=== PATIENT | male | born 1945 ===

== ENCOUNTER 2017-01-25 22:34 | Observation (INO) ==
[2017-01-26 01:25] LABS: Basophils % 0.3 % (0.0-0.8); Eosinophils # 0.1 10*3/uL (0.0-0.87); Eosinophils % 1.8 % (0.00-10.9); Hematocrit 37.6 VOL% (42.0-52.0); Hemoglobin 11.9 GM/DL (14.0-18.0); Immature Granulocytes % 0.3 %; Immature Granulocytes Absolute 0.02 #; Lymphocytes # 2.7 10*3/uL (1.4-4.0); Lymphocytes % 35.9 % (21.2-54.2); Mean Corpuscular HGB Conc 31.6 GM/DL (32-36); Mean Corpuscular Hemoglobin 31 PG (27-34); Mean Corpuscular Volume 98.9 FL (87-102); Mean Platelet Volume 9.7 FL (9.6-12.0); Monocytes # 0.8 10*3/uL (0.11-0.8); Monocytes % 10.4 % (1.7-12.7); Neutrophils # 3.9 10*3/uL (1.4-7.4); Neutrophils % 51.3 % (38.7-73.9); Platelet Count 228 T/CUMM (130-400); Red Cell Distribution Width 16.5 % (9.3-17.3); White Blood Count 7.6 T/CUMM (4-12)
[2017-01-26 01:46] LABS: Bilirubin,Total 0.4 MG/DL (0.2-1.0); Calcium 10.1 MG/DL (8.5-10.1); Osmolality,Calculated 291.4 MOS/KG (273-304); Potassium 3.8 MMOL/L (3.5-5.1); Total Protein 7.8 G/DL (6.4-8.3)
[2017-01-26] MEDS ORDERED: DEXTROSE 50% 25 GM/50 ML VIAL IV STA (01:52)
[2017-01-26] MEDS ORDERED: DEXTROSE 50% 25 GM/50 ML VIAL IV ONE (01:57)
--- NOTE | 2017-01-26 02:04 | Emergency Department Note ---
I, Bri Huff, am scribing for, and in the presence of, Travis Suh M.D. 00:28. IVikash Howard T, M.D., personally performed the services described in this documentation, ascribed by Bri Huff in my presence, and it is both accurate and complete . Arrival - Arrival Chief Complaint: Weakness Stated Complaint: weak light headed ED Nursing Triage Note: Pt to triage with c/o weakness that started this morning. Pt states his ears keeps "opening and closing up". Pt also states he's being having some eye drainage. Mode of Arrival: Wheelchair Limitations: No Limitations Source: Patient, Family Time Seen by Provider: 01/25/17 23:51 - History of Present Illness HPI Narrative: Pt is a 71 y/o black male arriving to ED via wheelchair with c/o generalized weakness that onset yesterday. Pt states that he has not been able to get up out of the bed without help. He states that this happened once before but he is not sure what his diagnosis was because it has been a while. Pt denies N/V/D but confirms chronic blurred vision. Family reports that pt has been losing weight although he has kept his same diet. No other complaints were reported to ED. Onset (ago): hour(s) Consistency: constant Severity: mild Allergies/Adverse Reactions: Allergies Allergy/AdvReac Type Severity Reaction Status Date / Time No Known Allergies Allergy Unverified 01/25/17 22:42 Home Medications: Home Medications Medication Instructions Recorded Confirmed Type Donepezil [Aricept] 5 mg PO DAILY 01/25/17 01/25/17 History Escitalopram Oxalate 10 mg PO 01/25/17 History Furosemide 20 mg PO 01/25/17 History Methocarbamol 750 mg PO TID 01/25/17 01/25/17 History OLANZapine [Olanzapine Odt] 5 mg PO 01/25/17 History OLANZapine [Olanzapine] 10 mg PO 01/25/17 History amLODIPine [Norvasc] 5 mg PO DAILY 01/25/17 01/25/17 History glipiZIDE [Glipizide] 10 mg PO 01/25/17 History metFORMIN [Glucophage] 1,000 mg PO BID W/MEALS 01/25/17 01/25/17 History Review of System - Review of System Constitutional: Present: weakness. Absent: chills, diaphoresis, fever Eyes: Present: other (chronic blurred vision) Gastrointestinal: Absent: abdominal pain, nausea, vomiting, diarrhea Genitourinary male: Absent: urgency, dysuria Musculoskeletal: Absent: arm pain, back pain, leg pain, neck pain Medical,Surgical,& Family Hx - Medical History Cardio: History of: Hypertension Endocrine: History of: Diabetes Mellitus (NIDDM) - Social History Smoking Status: Unknown if ever smoked Frequency of Alcohol Use: None Type of Drug Use: None Exam Vital Signs: Vital Signs Temperature 98.6 F 01/25/17 22:39 Pulse Rate 74 01/25/17 23:50 Respiratory Rate 16 01/25/17 23:50 Blood Pressure 154/76 01/25/17 23:50 O2 Sat by Pulse Oximetry 99 01/25/17 22:39 - General General appearance: alert, in no apparent distress - Head Head exam: Present: atraumatic, normocephalic, normal inspection - Eye Eye exam: Present: normal appearance, PERRL, EOMI - ENT ENT exam: Present: normal exam, normal oropharynx, mucous membranes moist, TM's normal bilaterally, normal external ear exam - Neck Neck exam: Present: normal inspection, full ROM, trachea midline. Absent: tenderness - Chest Chest inspection: Present: normal inspection, symmetric chest wall rise. Absent : tenderness - Respiratory Respiratory exam: Present: normal lung sounds bilaterally - Cardiovascular Cardiovascular exam: Present: regular rate, normal rhythm, normal heart sounds - Abdominal Exam Abdominal exam: Present: soft. Absent: distention, tenderness, guarding, rebound - Extremities Exam Extremities exam: Present: normal inspection, full ROM, normal capillary refill. Absent: tenderness, pedal edema - Back Exam Back exam: Present: normal inspection, full ROM. Absent: tenderness - Neurological Exam Neurological exam: Present: alert, oriented X3, CN II-XII intact, normal gait, reflexes normal - Psychiatric Psychiatric exam: Present: normal affect, normal mood - Skin Skin exam: Present: warm, dry, intact, normal color Course Course Narrative: Medical decision making: Hypoglycemia noted despite no insulin. Perhaps this is because of weakness, his evaluation is ongoing and hospitalist Dr. Driver will evaluate him once labs are back for admission and continued treatment. Results - Labs CBC & BMP: 01/26/17 00:36 01/26/17 00:36 - Diagnostic Findings Procedure: CT: report reviewed by me (Head: No acute intracranial pathology. ) Disposition Clinical Impression: Hypoglycemia, Weakness Case discussed with: patient Disposition: Still a Patient Condition: Stable Time of Disposition: 02:03
--- NOTE | 2017-01-26 03:55 | Hospitalist History & Physical ---
Assessment and Plan (1) Diabetes Status: Acute Current Visit: Yes (2) Hypernatremia Status: Acute Current Visit: Yes (3) Mild dehydration Status: Acute Current Visit: Yes (4) Hypoglycemia Status: Acute Current Visit: Yes (5) Weakness Status: Acute Assessment and plan: We will admit him to our service. Will consult diabetic education. We will provide him with half-normal saline and recheck labs in the morning. Get physical therapy to evaluate his strength. Reevaluate patient in the morning and adjust plans appropriate. Current Visit: Yes History of Present Illness Chief complaint: Generalized weakness History of present illness: Mr. Torres is a 71 year old male with past medical history significant for rheumatoid arthritis, diabetes and hypertension who reports generalized weakness. Patient says is been going off and on for a while. He notes some blurry vision and some discharge out of his eyes. Patient does not check his sugar routinely. Said his daughter checked in approximately a week ago. Patient gets to our ER patient was found to have a glucose of 37.Patient received an Amp of D50 for this. I was consulted to admit the patient. Home Medications Medication Instructions Recorded Confirmed Type Donepezil [Aricept] 5 mg PO DAILY 01/25/17 01/25/17 History Escitalopram Oxalate 10 mg PO 01/25/17 History Furosemide 20 mg PO 01/25/17 History Methocarbamol 750 mg PO TID 01/25/17 01/25/17 History OLANZapine [Olanzapine Odt] 5 mg PO 01/25/17 History OLANZapine [Olanzapine] 10 mg PO 01/25/17 History amLODIPine [Norvasc] 5 mg PO DAILY 01/25/17 01/25/17 History glipiZIDE [Glipizide] 10 mg PO 01/25/17 History metFORMIN [Glucophage] 1,000 mg PO BID W/MEALS 01/25/17 01/25/17 History Allergies Allergy/AdvReac Type Severity Reaction Status Date / Time No Known Allergies Allergy Unverified 01/25/17 22:42 Medical,Surgical,& Family Hx - Medical History Cardio: History of: Hypertension Endocrine: History of: Diabetes Mellitus (NIDDM) - Surgical History Orthopedic Surgeries: Surgical HX of;: Orthopedic Surgery - Family History Family History: Reports;: Family Hypertension - Social History Smoking Status: Unknown if ever smoked Frequency of Alcohol Use: None Type of Drug Use: None 12 point system: reviewed and no additional remarkable complaints except as stated Exam - Constitutional Vitals: Period Temp Pulse Resp BP Sys/Rivas Pulse Ox Last 24 Hr 98.6 F 74-84 16-16 120-154/65-76 99 - General General appearance: alert, in no apparent distress - Head Head exam: Present: atraumatic, normocephalic, normal inspection - Eye Eye exam: Present: normal appearance, PERRL, EOMI - ENT ENT exam: Present: normal exam, normal oropharynx, mucous membranes moist - Neck Neck exam: Present: normal inspection, full ROM, trachea midline. - Chest Chest inspection: Present: normal inspection, symmetric chest wall rise. - Respiratory Respiratory exam: Present: normal lung sounds bilaterally - Cardiovascular Cardiovascular exam: Present: regular rate, normal rhythm, normal heart sounds - Abdominal Exam Abdominal exam: Present: soft. Absent: distention, tenderness, guarding, rebound - Extremities Exam Extremities exam: Present: Patient has changes in his hand consistent with his rheumatoid arthritis - Back Exam Back exam: Present: normal inspection, full ROM. Absent: tenderness - Neurological Exam Neurological exam: Present: alert, oriented X3, CN II-XII intact, normal gait, reflexes normal - Psychiatric Psychiatric exam: Present: normal affect, normal mood - Skin Skin exam: Present: warm, dry, intact, normal color Results - Labs CBC & BMP: 01/26/17 00:36 01/26/17 00:36
[2017-01-26] MEDS ORDERED: ONDANSETRON 4 MG/2 ML VIAL IV PRN (03:58)
[2017-01-26] MEDS ORDERED: GLUCAGON 1 MG VIAL IM PRN (03:58)
[2017-01-26] MEDS ORDERED: DEXTROSE 50% 25 GM/50 ML VIAL IV PRN (03:58)
[2017-01-26] MEDS ORDERED: ACETAMINOPHEN 325 MG TABLET PO PRN (03:58)
[2017-01-26] MEDS: SODIUM CHLORIDE 0.45% 1,000 ML IV SCH ×2 (04:47→16:02)
[2017-01-26 05:32] LABS: Apearance,Urine CLEAR (Clear); Bilirubin,Urine Negative (Negative); Blood, Urine Negative (Negative); Glucose,Urine (UA) 150 mg/dL (Negative); Hyaline Casts,Urine 2 /LPF (0-3); Ketones,Urine 5 mg/dL (Negative); Mucus,Urine Few /LPF (Occasional); Nitrite,Urine Negative (Negative); Protein,Urine Negative; RBC,Urine 2 /HPF (0-4); Squamous Epithelial Cell,Urine Occasional /HPF (0-10); Urine Color Yellow (Yellow); WBC,Urine 1 /HPF (0-6)
--- NOTE | 2017-01-26 07:59 | CT Report ---
Referring physician: Travis Suh Exam: CT brain without contrast Date: 01/26/2017 Comparison: None Reason: Weakness, alteration of consciousness Technique: Axial images of the head were obtained without the use of contrast. Total DLP was 1088.90 mGy*cm. This exam was initially interpreted by [facility]. Findings: No hydrocephalus or midline shift is present. Cavum septum pellucidum and vergae. Diffuse atrophy and cerebral hypodensities. There is no evidence of an acute infarction, recent intracranial hemorrhage or abnormal mass effect. The osseous structures appear intact. Scalp calcifications are noted. The mastoid air cells and visualized paranasal sinuses are clear. Impression: No acute intracranial abnormality is identified. Minimal atrophy and microvascular disease. The CT exam was performed using one or more of the following dose reduction techniques: Automated exposure control and adjustment of the mA and/or kV according to patient size. PROCEDURE INTERPRETED AT [facility] DEPARTMENT OF RADIOLOGY Final Report Signed by: Dr. Sherry Ventura
[2017-01-26] MEDS: INSULIN REGULAR 100 UNIT/ML SUBCUT SCH ×4 (08:33→20:32)
[2017-01-26 08:35] LABS: Calcium 8.9 MG/DL (8.5-10.1); Magnesium 2.3 MG/DL (1.8-2.4); Osmolality,Calculated 289.7 MOS/KG (273-304)
[2017-01-26] MEDS: DONEPEZIL 5 MG TABLET PO SCH (09:33)
[2017-01-26] MEDS: METHOCARBAMOL 750 MG TABLET PO SCH ×3 (09:33→20:32)
[2017-01-26] MEDS: PANTOPRAZOLE 40 MG TABLET PO SCH (09:33)
[2017-01-26] MEDS: amLODIPine 5 MG TABLET PO SCH (09:33)
[2017-01-26] MEDS: ENOXAPARIN 40 MG/0.4 ML SYRINGE SUBCUT SCH (09:34)
--- NOTE | 2017-01-26 09:43 | Hospitalist Progress Note ---
Assessment and Plan (1) Hypoglycemia Status: Acute Assessment and plan: Impression: 1. Hypoglycemia 2. Type II DM 3. Schizophrenia 4. Hypertension Plan: Follow glucoses. Hold sulfonylurea. Hope to discharge in the morning. Will need to give him time to metabolize the sulfonylurea. This note was completed using [employer] voice recognition software. There may be sidewalk repairer errors as a result. Current Visit: Yes Hospitalist: Subjective Interval history: The patient presented for evaluation of weakness. He reports that he was recently found to be diabetic when he was hospitalized over in [place]. At that time, he was also apparently diagnosed as being schizophrenic. He reports no prior history of hospitalization for mental issues. He does not do any checking of his blood sugar. He says that his daughter lives with him, but she works 2 jobs. He apparently has access to food. He reports that his weight is "up and down." Exam - Constitutional Vitals: Period Temp Pulse Resp BP Sys/Rivas Pulse Ox Last 24 Hr 97.3 F-98.6 F 67-84 16-20 120-154/65-76 99-100 Vital signs are noted above. Heart is regular with a soft systolic murmur. Lungs are clear with no rales or wheezes. Abdomen is soft with no mass. He is awake and conversant. Results - Labs CBC & BMP: 01/26/17 00:36 01/26/17 07:57 Lab Results: I have reviewed the past 24 hour labs Quality Measures - Stroke Symptom Onset Unknown: No
[2017-01-26] MEDS: OLANZapine 5 MG TABLET PO SCH (20:32)
[2017-01-27] MEDS: SODIUM CHLORIDE 0.45% 1,000 ML IV SCH ×3 (00:30→20:24)
[2017-01-27] MEDS: INSULIN REGULAR 100 UNIT/ML SUBCUT SCH ×4 (09:49→20:23)
[2017-01-27] MEDS: ENOXAPARIN 40 MG/0.4 ML SYRINGE SUBCUT SCH (10:00)
[2017-01-27] MEDS: METHOCARBAMOL 750 MG TABLET PO SCH ×3 (10:01→20:24)
[2017-01-27] MEDS: PANTOPRAZOLE 40 MG TABLET PO SCH (10:01)
[2017-01-27] MEDS: DONEPEZIL 5 MG TABLET PO SCH (10:01)
[2017-01-27] MEDS: amLODIPine 5 MG TABLET PO SCH (10:01)
--- NOTE | 2017-01-27 18:39 | Hospitalist Progress Note ---
Assessment and Plan (1) Hypoglycemia Status: Acute Assessment and plan: This has resolved. Patient is not requiring any anti-diabetes medications at this time Current Visit: Yes (2) Diabetes Status: Acute Assessment and plan: This is well controlled on just sliding scale insulin and he is not requiring much insulin at all. Current Visit: Yes Qualifiers: Diabetes mellitus type: type 2 Diabetes mellitus complication status: without complication Diabetes mellitus long-term insulin use: without long-term use Qualified Code(s): E11.9 - Type 2 diabetes mellitus without complications (3) Schizophrenia Status: Chronic Current Visit: Yes Qualifiers: Schizophrenia type: unspecified Qualified Code(s): F20.9 - Schizophrenia, unspecified (4) Dementia Status: Chronic Current Visit: Yes Qualifiers: Dementia type: Alzheimer's disease Dementia behavioral disturbance: without behavioral disturbance Hospitalist: Subjective Interval history: 71 yo M with history of hypertension diabetes and rheumatoid arthritis was admitted for evaluation of weakness & hypoglycemia. He reports that he was recently found to be diabetic when he was hospitalized over in [place]. At that time, he was also apparently diagnosed as being schizophrenic. He reports no prior history of hospitalization for mental issues. He does not do any checking of his blood sugar. He says that his daughter lives with him, but she works 2 jobs. Exam - Constitutional Vitals: Period Temp Pulse Resp BP Sys/Rivas Pulse Ox Last 24 Hr 96.7 F-97.3 F 57-69 12-20 104-140/61-74 96-100 General appearance: no acute distress - Head Head exam: Present: normal inspection, normocephalic, atraumatic - Eye Eye exam: Present: EOMI Pupils: Present: KARI - ENT ENT exam: Present: normal exam - Neck Neck exam: Present: normal inspection - Respiratory Respiratory exam: Present: clear to auscultation bilaterally - Cardiovascular Cardiovascular exam: Present: regular rate and rhythm - GI/Abdominal GI/Abdominal exam: Present: normal bowel sounds - Extremities Exam Extremities exam: Present: normal inspection, normal capillary refill - Neurological Exam Neurological exam: Present: alert - Psychiatric Psychiatric exam: Present: normal affect, normal mood - Skin Skin exam: Present: normal color, warm, dry Results - Labs CBC & BMP: 01/26/17 00:36 01/26/17 07:57 Quality Measures - Stroke Symptom Onset Unknown: No
[2017-01-27] MEDS: OLANZapine 5 MG TABLET PO SCH (20:24)
[2017-01-28] MEDS: SODIUM CHLORIDE 0.45% 1,000 ML IV SCH ×2 (06:08→15:59)
[2017-01-28] MEDS: INSULIN REGULAR 100 UNIT/ML SUBCUT SCH ×4 (08:00→21:58)
[2017-01-28] MEDS: METHOCARBAMOL 750 MG TABLET PO SCH ×3 (08:54→20:29)
[2017-01-28] MEDS: DONEPEZIL 5 MG TABLET PO SCH (08:54)
[2017-01-28] MEDS: ENOXAPARIN 40 MG/0.4 ML SYRINGE SUBCUT SCH (08:55)
[2017-01-28] MEDS: PANTOPRAZOLE 40 MG TABLET PO SCH (08:55)
[2017-01-28] MEDS: amLODIPine 5 MG TABLET PO SCH (08:55)
--- NOTE | 2017-01-28 19:13 | Hospitalist Progress Note ---
Assessment and Plan (1) Hypoglycemia Status: Acute Assessment and plan: This has resolved. Patient is not requiring any anti-diabetes medications at this time Current Visit: Yes (2) Diabetes Status: Acute Assessment and plan: This is well controlled on just sliding scale insulin and he is not requiring much insulin at all. Current Visit: Yes Qualifiers: Diabetes mellitus type: type 2 Diabetes mellitus complication status: without complication Diabetes mellitus care home insulin use: without care home use Qualified Code(s): E11.9 - Type 2 diabetes mellitus without complications (3) Schizophrenia Status: Chronic Current Visit: Yes Qualifiers: Schizophrenia type: unspecified Qualified Code(s): F20.9 - Schizophrenia, unspecified (4) Dementia Status: Chronic Current Visit: Yes Qualifiers: Dementia type: Alzheimer's disease Dementia behavioral disturbance: without behavioral disturbance Hospitalist: Subjective Interval history: 71 yo M with history of hypertension diabetes and rheumatoid arthritis was admitted for evaluation of weakness & hypoglycemia. He reports that he was recently found to be diabetic when he was hospitalized over in [place]. At that time, he was also apparently diagnosed as being schizophrenic. He reports no prior history of hospitalization for mental issues. He does not do any checking of his blood sugar. He says that his daughter lives with him, but she works 2 jobs. No acute complaints today. Exam - Constitutional Vitals: Period Temp Pulse Resp BP Sys/Rivas Pulse Ox Last 24 Hr 96 F-98.3 F 53-64 18-22 116-162/59-79 92-100 Exam: General: [No Acute Distress] HEENT: [Normocephalic, atraumatic, Extra ocular movements intact] Neck: [Supple, No JVD] Chest: [Clear to auscultation B/L] CV: [S1 + S2 audible without murmur, gallop or rub] Abd: [soft, NT, Non-distended, BS +] Ext: [No edema] Skin: [No purpura, bruising or rash] Rheumatologic: [No Joint deformities] Neurologic: [Strengtg 5/5 all extremities, no gross sensory deficits] Results - Labs CBC & BMP: 01/26/17 00:36 01/26/17 07:57 - Impressions Assessment and Plan (1) Hypoglycemia Status: Acute Assessment and plan: This has resolved. Patient is not requiring any anti-diabetes medications at this time Current Visit: Yes (2) Diabetes Status: Acute Assessment and plan: This is well controlled on just sliding scale insulin and he is not requiring much insulin at all. Current Visit: Yes Qualifiers: Diabetes mellitus type: type 2 Diabetes mellitus complication status: without complication Diabetes mellitus care home insulin use: without care home use Qualified Code(s): E11.9 - Type 2 diabetes mellitus without complications (3) Schizophrenia Status: Chronic Current Visit: Yes Qualifiers: Schizophrenia type: unspecified Qualified Code(s): F20.9 - Schizophrenia, unspecified (4) Dementia Status: Chronic Current Visit: Yes Qualifiers: Dementia type: Alzheimer's disease Dementia behavioral disturbance: without behavioral disturbance Quality Measures - Stroke Symptom Onset Unknown: No
[2017-01-28] MEDS: OLANZapine 5 MG TABLET PO SCH (20:29)
[2017-01-29] MEDS: SODIUM CHLORIDE 0.45% 1,000 ML IV SCH ×2 (04:07→14:20)
[2017-01-29] MEDS: DONEPEZIL 5 MG TABLET PO SCH (09:16)
[2017-01-29] MEDS: METHOCARBAMOL 750 MG TABLET PO SCH ×2 (09:16→14:14)
[2017-01-29] MEDS: ENOXAPARIN 40 MG/0.4 ML SYRINGE SUBCUT SCH (09:19)
[2017-01-29] MEDS: amLODIPine 5 MG TABLET PO SCH (09:19)
[2017-01-29] MEDS: INSULIN REGULAR 100 UNIT/ML SUBCUT SCH ×2 (09:19→11:40)
[2017-01-29] MEDS: PANTOPRAZOLE 40 MG TABLET PO SCH (09:19)
[2017-01-29 12:15] VITALS: BP 132/76
--- NOTE | 2017-01-29 13:31 | Discharge Summary ---
Hospital Course - Hospital Course Hospital Course: 71 year old male with past medical history significant for rheumatoid arthritis , diabetes and hypertension who presented with generalized weakness, associated with some blurry vision . Patient does not check his sugar routinely. Said his daughter checked in approximately a week ago. Patient was found to have a glucose of 37 in ER. Patient received an Amp of D50 for this. Patient was admitted to the hospitalist service by his oral diabetes agents were held and not resumed as his Accu-Cheks remained within normal range. His hemoglobin A1c was around 4.7 begetting that he was likely getting too much diabetes medication. He had no further hypoglycemic episodes while in the hospital. Other home medications were continued and adjusted as necessary. Patient has no further blurred vision or generalized weakness hours he is very physically deconditioned and is scheduled to go to [facility]hab today in improved and stable condition. - Time spent with patient Time with patient DS: Less than 30 minutes Diagnosis - Discharge Diagnosis (1) Hypoglycemia Status: Resolved (2) Diabetes Status: Chronic (3) Schizophrenia Status: Chronic (4) Dementia Status: Chronic Discharge Plan - Discharge Data Condition at Discharge: Stable Discharge Diet: advance to your usual diet, diabetic diet Hygiene: no restrictions Weight Bearing at Discharge: full weight bearing Driving: no restrictions - Discharge Medications New OLANZapine TAB [ZyPREXA Tab] 10 mg PO BEDTIME #30 tablet Continue amLODIPine [Norvasc] 5 mg PO DAILY #60 Methocarbamol 750 mg PO TID Furosemide 20 mg PO DAILY Donepezil [Aricept] 5 mg PO DAILY #30 Changed Escitalopram Oxalate 10 mg PO DAILY W/BREAKFAST #30 Discontinued metFORMIN [Glucophage] 1,000 mg PO BID W/MEALS glipiZIDE [Glipizide] 10 mg PO DAILY OLANZapine [Olanzapine] 10 mg PO BEDTIME - Follow Up or Referral - Forms/Instructions Exam - Constitutional Vitals: Period Temp Pulse Resp BP Sys/Rivas Pulse Ox Last 24 Hr 96.5 F-97.6 F 55-66 18-20 121-161/59-88 95-99 Exam: General: [No Acute Distress] HEENT: [Normocephalic, atraumatic, Extra ocular movements intact] Neck: [Supple, No JVD] Chest: [Clear to auscultation B/L] CV: [S1 + S2 audible without murmur, gallop or rub] Abd: [soft, NT, Non-distended, BS +] Ext: [No edema] Skin: [No purpura, bruising or rash] Rheumatologic: [No Joint deformities] Neurologic: [Strengtg 5/5 all extremities, no gross sensory deficits] Discharge Results Labs on day of discharge: Labs from last 24 hours 01/29/17 01/29/17 01/28/17 11:35 06:46 21:01 POC Glucose 134 H 103 188 H 01/28/17 15:44 POC Glucose 134 H DS: Provider Date of admission: 01/26/17 03:10 Primary care physician: Peter Mendoza MD Attending physician on admission: Davey Fernandez MD Consults: 01/26/17 04:01 Consult to Diabetes Center, Educator [CONS] Routine Reason for Painter And Decorator: Diabetes Education 01/26/17 04:03 Consult to Physical Therapy [CONS] Routine Reason for Physical Therapy: Evaluate and Treat 01/26/17 04:38 Consult to Pastoral Services [CONS] Routine Comment: Pastoral Screen: Request Firebrick And Refractory Tile Repairer Visit Pastoral Screen Source of Request: Patient 01/27/17 10:43 Consult to Case Mgmt/Social Srvs [CONS] Routine Reason for Case Mgmt/Social Srvs: Swingbed/SNF/Group Home 01/28/17 08:09 Consult to Occupational Therapy [CONS] Routine Reason for Occupational Therapy: Evaluate and Treat Discharging clinician: Seamus Srinivasan MD
== END 2017-01-29 15:43 ==
LOC: N.ED 22:34 → N.EDINP 22:34 → SUATTDRO 01-26 03:10 → N.2E 01-26 03:46
PROVIDERS: ADMIT Internal Medicine; ATTEND Hospitalist

== ENCOUNTER 2019-06-20 10:28 | Inpatient (IN) ==
[2019-06-20 11:56] LABS: Basophils % 0.3 % (0.0-0.8); Eosinophils # 0.1 10*3/uL (0.0-0.87); Eosinophils % 1.9 % (0.00-10.9); Hematocrit 38.6 VOL% (42.0-52.0); Hemoglobin 11.9 GM/DL (14.0-18.0); Immature Granulocytes % 0.3 %; Immature Granulocytes Absolute 0.02 #; Lymphocytes # 2.1 10*3/uL (1.4-4.0); Lymphocytes % 32.2 % (21.2-54.2); Mean Corpuscular HGB Conc 30.8 GM/DL (32-36); Mean Corpuscular Volume 103.8 FL (87-102); Mean Platelet Volume 10.4 FL (9.6-12.0); Monocytes % 9.1 % (1.7-12.7); Neutrophils % 56.2 % (38.7-73.9); Platelet Count 207 T/CUMM (130-400); Red Blood Count 3.72 MC/CUMM (3.8-5.5); Red Cell Distribution Width 15.1 % (9.3-17.3); White Blood Count 6.4 T/CUMM (4-12)
[2019-06-20 12:14] LABS: Alanine Aminotransferase 19 U/L (16-61); Albumin 3.5 G/DL (3.4-5.0); Alkaline Phosphatase 74 U/L (45-117); Aspartate Amino Transferase 49 U/L (0-37); Bilirubin,Total < 0.39 MG/DL (0.2-1.0); Blood Urea Nitrogen 16 MG/DL (7-18); Calcium 8.9 MG/DL (8.5-10.1); Estimated Glom Filtration Rate 66 ML/MIN; Glucose 162 MG/DL (74-106); Osmolality,Calculated 283.4 MOS/KG (273-304); Total Protein 7.7 G/DL (6.4-8.3)
[2019-06-20 12:44] LABS: Apearance,Urine CLEAR (Clear); Bilirubin,Urine Negative (Negative); Blood, Urine Moderate mg/dL (Negative); Glucose,Urine (UA) 50 mg/dL (Negative); Ketones,Urine Negative (Negative); Mucus,Urine Occasional /LPF (Occasional); Nitrite,Urine Negative (Negative); Protein,Urine 30 MG/DL; RBC,Urine 1 /HPF (0-4); Squamous Epithelial Cell,Urine Occasional /HPF (0-10); Urine Color Yellow (Yellow); Urine Specific Gravity 1.019 (1.001-1.035); WBC,Urine <1 /HPF (0-6)
[2019-06-20] MEDS ORDERED: LACTATED RINGERS 1,000 ML IV ONE (12:51)
[2019-06-20] MEDS ORDERED: SODIUM CHLORIDE 0.9% 1,000 ML IV STA (13:04)
[2019-06-20] MEDS ORDERED: GLUCAGON 1 MG VIAL IM PRN (13:42)
[2019-06-20] MEDS ORDERED: ONDANSETRON 4 MG/2 ML VIAL IV PRN (13:42)
[2019-06-20] MEDS ORDERED: ACETAMINOPHEN 325 MG TABLET PO PRN (13:42)
[2019-06-20] MEDS ORDERED: DEXTROSE 10% 25 GM/250 ML BAG IV PRN (13:42)
[2019-06-20 13:43] LABS: CKMB % 0.4 %
[2019-06-20 14:13] LABS: Risk Ratio 4.6; Thyroid Stimulating Hormone 1.4 uIU/ml (0.358-3.74)
[2019-06-20] MEDS: INSULIN LISPRO 100 UNIT/ML SUBCUT SCH ×2 (16:41→20:45)
[2019-06-20] MEDS: SODIUM CHLORIDE 0.9% 1,000 ML IV SCH (16:41)
[2019-06-20] MEDS: ENOXAPARIN 40 MG/0.4 ML SYRINGE SUBCUT SCH (16:57)
[2019-06-20 17:26] LABS: ABG Base Excess -0.8 MMOL/L (-2.5-2.5); ABG HCO3 23.7 MMOL/L (20-26); ABG Oxygen Saturation 95.4 % (95-100); ABG PCO2 42.4 MM HG (35-48); ABG PH 7.371 (7.35-7.45); ABG PO2 83.2 MM HG (80-95); ABG TCO2 22.1 MMOL/L (23-27)
[2019-06-20] MEDS: OLANZapine 5 MG TABLET PO SCH (20:45)
[2019-06-20] MEDS: DOCUSATE SODIUM 100 MG CAPSULE PO SCH (20:45)
[2019-06-20] MEDS ORDERED: metFORMIN 500 MG TABLET PO SCH (21:00)
[2019-06-21] MEDS: SODIUM CHLORIDE 0.9% 1,000 ML IV SCH ×4 (03:20→21:46)
[2019-06-21 05:55] LABS: Basophils % 0.2 % (0.0-0.8); Eosinophils # 0.2 10*3/uL (0.0-0.87); Eosinophils % 5.2 % (0.00-10.9); Hematocrit 33.2 VOL% (42.0-52.0); Hemoglobin 10.4 GM/DL (14.0-18.0); Immature Granulocytes % 0.2 %; Immature Granulocytes Absolute 0.01 #; Lymphocytes # 2.4 10*3/uL (1.4-4.0); Lymphocytes % 56.3 % (21.2-54.2); Mean Corpuscular HGB Conc 31.3 GM/DL (32-36); Mean Corpuscular Volume 103.4 FL (87-102); Mean Platelet Volume 10.4 FL (9.6-12.0); Monocytes % 11.4 % (1.7-12.7); Neutrophils % 26.7 % (38.7-73.9); Platelet Count 184 T/CUMM (130-400); Red Blood Count 3.21 MC/CUMM (3.8-5.5); White Blood Count 4.2 T/CUMM (4-12)
[2019-06-21 06:18] LABS: Atypical Lymphocytes Few; Eosinophils 5 % (0-10); Hypochromasia 1+; Lymphocytes 63 % (20-55); Segmented Neutrophils 25 % (50-85); Total Cells Counted 100
[2019-06-21 06:19] LABS: Macrocytosis Slight; Platelet Estimate Adequate
[2019-06-21 06:22] LABS: Calcium 8.3 MG/DL (8.5-10.1); Osmolality,Calculated 290.6 MOS/KG (273-304)
[2019-06-21 06:27] LABS: % Iron Saturation 28.8 % (18-50); Ferritin 213.3 ng/ml (26-388)
[2019-06-21 06:30] LABS: Folate 9.9 NG/ML (5.4-24.0); Vitamin B12 452 PG/ML (211-911)
[2019-06-21 07:15] LABS: Sedimentation Rate-Westergren 59 MM/HR (0-20)
[2019-06-21] MEDS: INSULIN LISPRO 100 UNIT/ML SUBCUT SCH ×4 (07:55→20:51)
[2019-06-21] MEDS: LEFLUNOMIDE 10 MG TABLET PO SCH (09:18)
[2019-06-21] MEDS: CHOLECALCIFEROL 1,000 UNIT TABLET PO SCH (09:19)
[2019-06-21] MEDS: DOCUSATE SODIUM 100 MG CAPSULE PO SCH ×2 (09:19→20:51)
[2019-06-21] MEDS: ENOXAPARIN 40 MG/0.4 ML SYRINGE SUBCUT SCH (09:19)
[2019-06-21] MEDS: ESCITALOPRAM 10 MG TABLET PO SCH (09:19)
[2019-06-21] MEDS: DONEPEZIL 5 MG TABLET PO SCH (09:19)
[2019-06-21] MEDS: amLODIPine 5 MG TABLET PO SCH (09:19)
[2019-06-21] MEDS: PANTOPRAZOLE 40 MG TABLET PO SCH (09:19)
[2019-06-21] MEDS: OLANZapine 5 MG TABLET PO SCH (20:51)
[2019-06-22 04:47] LABS: Basophils % 0.4 % (0.0-0.8); Eosinophils # 0.2 10*3/uL (0.0-0.87); Hematocrit 36.8 VOL% (42.0-52.0); Hemoglobin 11.3 GM/DL (14.0-18.0); Immature Granulocytes % 0.2 %; Immature Granulocytes Absolute 0.01 #; Lymphocytes # 1.9 10*3/uL (1.4-4.0); Lymphocytes % 36.3 % (21.2-54.2); Mean Corpuscular HGB Conc 30.7 GM/DL (32-36); Mean Platelet Volume 10.2 FL (9.6-12.0); Monocytes % 11.2 % (1.7-12.7); Neutrophils % 47.9 % (38.7-73.9); Platelet Count 192 T/CUMM (130-400); Red Blood Count 3.54 MC/CUMM (3.8-5.5); Red Cell Distribution Width 14.9 % (9.3-17.3); White Blood Count 5.2 T/CUMM (4-12)
[2019-06-22 05:07] LABS: Calcium 8.1 MG/DL (8.5-10.1)
[2019-06-22] MEDS: SODIUM CHLORIDE 0.9% 1,000 ML IV SCH ×3 (05:18→21:27)
[2019-06-22 09:36] LABS: Hemoglobin A1 (Alkaline) 97.5 % (96.5-98.5); Hemoglobin A2 (Alkaline) 2.5 % (1.5-3.5)
[2019-06-22] MEDS: ESCITALOPRAM 10 MG TABLET PO SCH (10:00)
[2019-06-22] MEDS: INSULIN LISPRO 100 UNIT/ML SUBCUT SCH ×4 (10:00→21:27)
[2019-06-22] MEDS: PANTOPRAZOLE 40 MG TABLET PO SCH (10:00)
[2019-06-22] MEDS: ENOXAPARIN 40 MG/0.4 ML SYRINGE SUBCUT SCH (10:00)
[2019-06-22] MEDS: CHOLECALCIFEROL 1,000 UNIT TABLET PO SCH (10:00)
[2019-06-22] MEDS: DOCUSATE SODIUM 100 MG CAPSULE PO SCH ×2 (10:01→21:27)
[2019-06-22] MEDS: amLODIPine 5 MG TABLET PO SCH (10:01)
[2019-06-22] MEDS: DONEPEZIL 5 MG TABLET PO SCH (10:01)
[2019-06-22] MEDS: LEFLUNOMIDE 10 MG TABLET PO SCH (10:12)
[2019-06-22] MEDS: OLANZapine 5 MG TABLET PO SCH (21:27)
[2019-06-23 05:56] LABS: Basophils % 0.4 % (0.0-0.8); Eosinophils # 0.2 10*3/uL (0.0-0.87); Eosinophils % 4.9 % (0.00-10.9); Hematocrit 32.4 VOL% (42.0-52.0); Hemoglobin 10.1 GM/DL (14.0-18.0); Immature Granulocytes % 0.2 %; Immature Granulocytes Absolute 0.01 #; Lymphocytes # 2.5 10*3/uL (1.4-4.0); Mean Corpuscular HGB Conc 31.2 GM/DL (32-36); Mean Corpuscular Volume 102.2 FL (87-102); Mean Platelet Volume 10.1 FL (9.6-12.0); Neutrophils % 29.5 % (38.7-73.9); Platelet Count 177 T/CUMM (130-400); Red Blood Count 3.17 MC/CUMM (3.8-5.5); Red Cell Distribution Width 15.2 % (9.3-17.3); White Blood Count 4.7 T/CUMM (4-12)
[2019-06-23] MEDS: SODIUM CHLORIDE 0.9% 1,000 ML IV SCH (05:56)
[2019-06-23 06:23] LABS: Calcium 7.6 MG/DL (8.5-10.1); Osmolality,Calculated 292.6 MOS/KG (273-304)
[2019-06-23 06:25] LABS: Atypical Lymphocytes Few; Eosinophils 8 % (0-10); Lymphocytes 51 % (20-55); Segmented Neutrophils 35 % (50-85); Total Cells Counted 100
[2019-06-23 06:26] LABS: Hypochromasia 1+; Macrocytosis Slight
[2019-06-23 06:27] LABS: Platelet Estimate Adequate
[2019-06-23] MEDS: LEFLUNOMIDE 10 MG TABLET PO SCH (09:51)
[2019-06-23] MEDS: INSULIN LISPRO 100 UNIT/ML SUBCUT SCH ×2 (09:52→12:01)
[2019-06-23] MEDS: DOCUSATE SODIUM 100 MG CAPSULE PO SCH (09:52)
[2019-06-23] MEDS: ESCITALOPRAM 10 MG TABLET PO SCH (09:52)
[2019-06-23] MEDS: PANTOPRAZOLE 40 MG TABLET PO SCH (09:52)
[2019-06-23] MEDS: CHOLECALCIFEROL 1,000 UNIT TABLET PO SCH (09:52)
[2019-06-23] MEDS: amLODIPine 5 MG TABLET PO SCH (09:52)
[2019-06-23] MEDS: DONEPEZIL 5 MG TABLET PO SCH (09:52)
[2019-06-23] MEDS: ENOXAPARIN 40 MG/0.4 ML SYRINGE SUBCUT SCH (09:53)
[2019-06-23 11:45] VITALS: BP 174/65
== END 2019-06-23 14:40 | disposition swing bed (61) | DRG 948 ==
LOC: N.ED 10:28 → N.EDINP 13:24 → N.2E 15:22
PROVIDERS: ADMIT Hospitalist; ATTEND Hospitalist

== ENCOUNTER 2020-07-29 10:08 | Inpatient (IN) ==
[2020-07-29 10:47] LABS: Basophils % 0.2 % (0.0-0.8); Eosinophils # 0.2 10*3/uL (0.0-0.87); Eosinophils % 3.8 % (0.00-10.9); Hematocrit 37.1 VOL% (42.0-52.0); Hemoglobin 12.1 GM/DL (14.0-18.0); Immature Granulocytes % 0.2 %; Immature Granulocytes Absolute 0.01 #; Lymphocytes # 1.2 10*3/uL (1.4-4.0); Lymphocytes % 27.9 % (21.2-54.2); Mean Corpuscular HGB Conc 32.6 GM/DL (32-36); Mean Corpuscular Volume 100.8 FL (87-102); Mean Platelet Volume 9.7 FL (9.6-12.0); Monocytes % 14.2 % (1.7-12.7); Neutrophils % 53.7 % (38.7-73.9); Platelet Count 205 T/CUMM (130-400); Red Blood Count 3.68 MC/CUMM (3.8-5.5); Red Cell Distribution Width 14.7 % (9.3-17.3); White Blood Count 4.2 T/CUMM (4-12)
[2020-07-29 11:14] LABS: Albumin 3.4 G/DL (3.4-5.0); Bilirubin,Total 0.4 MG/DL (0.2-1.0); Osmolality,Calculated 279.8 MOS/KG (273-304); Total Protein 7.9 G/DL (6.4-8.3)
[2020-07-29 12:03] LABS: Bilirubin,Urine Negative (Negative); Blood, Urine Negative (Negative); Glucose,Urine (UA) Negative (Negative); Ketones,Urine 5 mg/dL (Negative); Mucus,Urine Occasional /LPF (Occasional); Nitrite,Urine Negative (Negative); Protein,Urine Negative; RBC,Urine 1 /HPF (0-4); Urine Appearance CLEAR (Clear); Urine Color Yellow (Yellow); Urine Specific Gravity 1.019 (1.001-1.035); WBC,Urine <1 /HPF (0-6)
[2020-07-29] MEDS ORDERED: ACETAMINOPHEN 325 MG TABLET PO PRN (13:55)
[2020-07-29] MEDS ORDERED: ONDANSETRON 4 MG/2 ML VIAL IV PRN (13:55)
[2020-07-29] MEDS ORDERED: DEXTROSE 50% 25 GM/50 ML VIAL IV PRN (13:55)
[2020-07-29] MEDS ORDERED: DOCUSATE SODIUM 100 MG CAPSULE PO PRN (13:55)
[2020-07-29] MEDS ORDERED: GLUCAGON 1 MG VIAL IM PRN (13:55)
[2020-07-29] MEDS: SODIUM CHLORIDE 0.9% 1,000 ML IV SCH (16:55)
[2020-07-29] MEDS: INSULIN REGULAR 100 UNIT/ML SUBCUT SCH ×2 (16:58→21:56)
[2020-07-29] MEDS: DONEPEZIL 5 MG TABLET PO SCH (21:55)
[2020-07-29] MEDS: ENOXAPARIN 40 MG/0.4 ML SYRINGE SUBCUT SCH (21:56)
[2020-07-29] MEDS: OLANZapine 5 MG TABLET PO SCH (21:56)
[2020-07-29] MEDS: metFORMIN 500 MG TABLET PO SCH (21:56)
[2020-07-29] MEDS: hydrALAZINE 20 MG/1 ML VIAL IV PRN (21:57)
[2020-07-30 06:42] LABS: Basophils % 0.3 % (0.0-0.8); Eosinophils # 0.2 10*3/uL (0.0-0.87); Eosinophils % 5.9 % (0.00-10.9); Hematocrit 37.7 VOL% (42.0-52.0); Hemoglobin 12.3 GM/DL (14.0-18.0); Immature Granulocytes % 0.3 %; Immature Granulocytes Absolute 0.01 #; Lymphocytes # 1.5 10*3/uL (1.4-4.0); Lymphocytes % 42.7 % (21.2-54.2); Mean Corpuscular HGB Conc 32.6 GM/DL (32-36); Mean Corpuscular Volume 101.9 FL (87-102); Mean Platelet Volume 9.8 FL (9.6-12.0); Monocytes % 13.4 % (1.7-12.7); Neutrophils % 37.4 % (38.7-73.9); Platelet Count 199 T/CUMM (130-400); Red Cell Distribution Width 14.8 % (9.3-17.3); White Blood Count 3.6 T/CUMM (4-12)
[2020-07-30] MEDS: SODIUM CHLORIDE 0.9% 1,000 ML IV SCH ×3 (07:02→16:25)
[2020-07-30 07:06] LABS: Calcium 8.7 MG/DL (8.5-10.1); Osmolality,Calculated 280.4 MOS/KG (273-304)
[2020-07-30] MEDS: INSULIN REGULAR 100 UNIT/ML SUBCUT SCH ×4 (07:10→21:24)
[2020-07-30 08:37] LABS: Eosinophils 3 % (0-10); Lymphocytes 61 % (20-55); Segmented Neutrophils 35 % (50-85); Total Cells Counted 100
[2020-07-30 08:38] LABS: Ovalocytes Slight; Spherocytes Slight
[2020-07-30 08:39] LABS: Platelet Estimate Adequate; Schistocytes Few
[2020-07-30] MEDS: metFORMIN 500 MG TABLET PO SCH (08:54)
[2020-07-30] MEDS: hydrALAZINE 20 MG/1 ML VIAL IV PRN (08:54)
[2020-07-30] MEDS: PANTOPRAZOLE 40 MG TABLET PO SCH (08:55)
[2020-07-30] MEDS: amLODIPine 5 MG TABLET PO SCH (08:55)
[2020-07-30] MEDS: ESCITALOPRAM 10 MG TABLET PO SCH (08:55)
[2020-07-30] MEDS: DONEPEZIL 5 MG TABLET PO SCH (21:21)
[2020-07-30] MEDS: OLANZapine 5 MG TABLET PO SCH (21:23)
[2020-07-30] MEDS: ENOXAPARIN 40 MG/0.4 ML SYRINGE SUBCUT SCH (21:24)
[2020-07-31 06:11] LABS: Basophils % 0.2 % (0.0-0.8); Eosinophils # 0.2 10*3/uL (0.0-0.87); Eosinophils % 5.3 % (0.00-10.9); Hematocrit 34.4 VOL% (42.0-52.0); Hemoglobin 11.2 GM/DL (14.0-18.0); Lymphocytes # 1.9 10*3/uL (1.4-4.0); Lymphocytes % 43.6 % (21.2-54.2); Mean Corpuscular HGB Conc 32.6 GM/DL (32-36); Mean Corpuscular Volume 100.6 FL (87-102); Mean Platelet Volume 9.6 FL (9.6-12.0); Monocytes % 20.6 % (1.7-12.7); Neutrophils % 30.3 % (38.7-73.9); Platelet Count 200 T/CUMM (130-400); Red Blood Count 3.42 MC/CUMM (3.8-5.5); White Blood Count 4.4 T/CUMM (4-12)
[2020-07-31 06:32] LABS: Calcium 8.7 MG/DL (8.5-10.1); Osmolality,Calculated 283.3 MOS/KG (273-304)
[2020-07-31 06:39] LABS: Eosinophils 7 % (0-10); Hypochromasia 1+; Lymphocytes 41 % (20-55); Microcytosis 1+; Ovalocytes Slight; Platelet Estimate Adequate; Segmented Neutrophils 31 % (50-85); Total Cells Counted 100
[2020-07-31] MEDS: INSULIN REGULAR 100 UNIT/ML SUBCUT SCH ×4 (07:49→22:41)
[2020-07-31] MEDS: SODIUM CHLORIDE 0.9% 1,000 ML IV SCH ×3 (07:49→17:44)
[2020-07-31] MEDS: ESCITALOPRAM 10 MG TABLET PO SCH (09:06)
[2020-07-31] MEDS: amLODIPine 5 MG TABLET PO SCH (09:06)
[2020-07-31] MEDS: PANTOPRAZOLE 40 MG TABLET PO SCH (09:06)
[2020-07-31] MEDS: LEFLUNOMIDE 10 MG TABLET PO SCH (09:09)
[2020-07-31] MEDS: DONEPEZIL 5 MG TABLET PO SCH (22:43)
[2020-07-31] MEDS: OLANZapine 5 MG TABLET PO SCH (22:43)
[2020-07-31] MEDS: ENOXAPARIN 40 MG/0.4 ML SYRINGE SUBCUT SCH (22:44)
[2020-08-01] MEDS: SODIUM CHLORIDE 0.9% 1,000 ML IV SCH ×4 (04:09→16:36)
[2020-08-01 06:02] LABS: Basophils % 0.2 % (0.0-0.8); Eosinophils # 0.2 10*3/uL (0.0-0.87); Eosinophils % 5.5 % (0.00-10.9); Hemoglobin 11.1 GM/DL (14.0-18.0); Immature Granulocytes % 0.2 %; Immature Granulocytes Absolute 0.01 #; Lymphocytes # 1.9 10*3/uL (1.4-4.0); Lymphocytes % 45.5 % (21.2-54.2); Mean Corpuscular HGB Conc 31.7 GM/DL (32-36); Mean Corpuscular Volume 102.3 FL (87-102); Mean Platelet Volume 9.6 FL (9.6-12.0); Monocytes % 15.8 % (1.7-12.7); Neutrophils % 32.8 % (38.7-73.9); Platelet Count 200 T/CUMM (130-400); Red Blood Count 3.42 MC/CUMM (3.8-5.5); White Blood Count 4.2 T/CUMM (4-12)
[2020-08-01 06:26] LABS: Anisocytosis 1+; Band Neutrophils 6 % (0-10); Eosinophils 9 % (0-10); Lymphocytes 41 % (20-55); Macrocytosis 2+; Ovalocytes Few; Platelet Estimate Normal; Segmented Neutrophils 34 % (50-85); Total Cells Counted 100
[2020-08-01 06:27] LABS: Calcium 8.1 MG/DL (8.5-10.1); Osmolality,Calculated 281.3 MOS/KG (273-304)
[2020-08-01] MEDS: INSULIN REGULAR 100 UNIT/ML SUBCUT SCH ×4 (07:33→21:57)
[2020-08-01] MEDS: LEFLUNOMIDE 10 MG TABLET PO SCH (08:10)
[2020-08-01] MEDS: amLODIPine 5 MG TABLET PO SCH (08:10)
[2020-08-01] MEDS: ESCITALOPRAM 10 MG TABLET PO SCH (08:10)
[2020-08-01] MEDS: PANTOPRAZOLE 40 MG TABLET PO SCH (08:10)
[2020-08-01] MEDS: OLANZapine 5 MG TABLET PO SCH (21:57)
[2020-08-01] MEDS: ENOXAPARIN 40 MG/0.4 ML SYRINGE SUBCUT SCH (21:57)
[2020-08-01] MEDS: DONEPEZIL 5 MG TABLET PO SCH (21:57)
[2020-08-02] MEDS: SODIUM CHLORIDE 0.9% 1,000 ML IV SCH ×3 (06:36→18:20)
[2020-08-02] MEDS: amLODIPine 5 MG TABLET PO SCH (08:19)
[2020-08-02] MEDS: INSULIN REGULAR 100 UNIT/ML SUBCUT SCH ×3 (08:19→18:19)
[2020-08-02] MEDS: LEFLUNOMIDE 10 MG TABLET PO SCH (08:19)
[2020-08-02] MEDS: PANTOPRAZOLE 40 MG TABLET PO SCH (08:19)
[2020-08-02] MEDS: ESCITALOPRAM 10 MG TABLET PO SCH (08:19)
[2020-08-02] MEDS: hydrALAZINE 20 MG/1 ML VIAL IV PRN (12:38)
[2020-08-02 15:44] VITALS: BP 179/79
== END 2020-08-02 18:13 | disposition home health service (06) | DRG 547 ==
LOC: N.ED 10:08 → SUATTDRO 13:55 → N.EDINP 13:55 → N.5E 16:20
PROVIDERS: ADMIT Emergency Medicine; ATTEND Internal Medicine